=== PATIENT | female | born 1955 | race Caucasian/White ===

== ENCOUNTER 2020-06-04 16:41 | Emergency (ER) | payer MEDICARE, SELFPAY ==
[2020-06-04 17:00] VITALS: RESP 17
[2020-06-04 17:06] VITALS: BP 137/81; PULSE 95; RESP 17; TEMP 36.8; O2SAT 97; BMI 36.6
--- NOTE | 2020-06-04 17:17 | ECG_ITS ---
Test Reason : WEAKNESS Blood Pressure : / mmHG Vent. Rate : 071 BPM Atrial Rate : 071 BPM P-R Int : 140 ms QRS Dur : 088 ms QT Int : 382 ms P-R-T Axes : 050 004 055 degrees QTc Int : 415 ms Normal sinus rhythm Inferior infarct (cited on or before 18-AUG-2017) Otherwise normal ECG When compared with ECG of 18-AUG-2017 15:04, No significant change was found Referred By: Autumn Storey Electronically Signed By:MOI EVERETT MD
--- NOTE | 2020-06-04 17:17 | XR_ITS ---
EXAMINATION: PORTABLE CHEST 1 VIEW CLINICAL INFORMATION: sob . COMPARISON: 10/24/2017. TECHNIQUE: Portable frontal view of the chest was obtained. FINDINGS: Lungs remain hypoexpanded. There is a significant convex right thoracic curve. I do not appreciate any acute superimposed focal infiltrate, effusion, edema, or pneumothorax in this setting. Cardiac and mediastinal silhouettes likely within normal limits again for the degree of significant scoliosis. No acute bony abnormality superimposed on these chronic changes IMPRESSION: Significant convex right scoliotic curve. No acute process seen when compared to the prior study.
--- NOTE | 2020-06-04 17:44 | ED.SOB ---
HPI - SOB/Dyspnea General Chief Complaint: Dyspnea Stated Complaint: COUGH Time Seen by Provider: 06/04/20 17:11 Source: patient Mode of arrival: ambulatory History of Present Illness HPI Narrative: 64-year-old female with a past medical history of asthma presenting to ED complaining of worsening SOB, dry cough, and generalized fatigue /weakness x2 weeks. admits to episode of CP last night, denies at present. denies fever, chills, abdominal pain, nausea / vomiting, LE edema, history of clots, exposure to COVID-19 MD elicited complaint: shortness of breath and cough Related Data Allergies Allergy/AdvReac Type Severity Reaction Status Date / Time codeine [Codeine] Allergy Unknown LETHARGIC Unverified 05/05/20 17:25 omeprazole Allergy Unknown throat Verified 01/05/19 00:00 swelling penicillin G [Penicillin G] Allergy Unknown RASH Unverified 05/05/20 17:25 penicillin V Allergy Unknown Verified 01/05/19 00:00 Sulfa (Sulfonamide Allergy Unknown ITCH Unverified 05/05/20 17:25 Antibiotics) Review of Systems Review of Systems: Constitutional: No Weight loss, No Fever, No Chills, No Night Sweats,+ Fatigue, + Malaise ENT/Mouth: No Nasal Congestion, +Sinus Pain, No Hoarseness, + sore throat, + Rhinorrhea Cardiovascular: + Chest Pain, + SOB, No Dyspnea on Exertion, No Orthopnea, No Edema Respiratory: +Cough, No Sputum, No Wheezing, + Dyspnea Gastrointestinal: No Nausea, No Vomiting, No Diarrhea, No Constipation, No Abdominal pain Skin: No Skin Lesions, No rash Yes all other systems are reviewed and are negative [facility] Past Medical History Attestation statement: The following information was validated with the patient. Source: old records reviewed and nursing notes reviewed Medical History (Updated 06/04/20 @ 19:36 by ANGELES Lucero) Asthma Social History Social History Alcohol intake: never Smoking Status: Never smoker Smoked in Last 30 Days: No Use of substances other than those prescribed or required for medical reasons: No Advance Directives: No Advance Directives Information Provided: Yes Physical Exam Vital Signs: Vital Signs: Vital Signs Temp Pulse Resp BP Pulse Ox 06/04/20 17:06 98.3 F 95 17 137/81 97 06/04/20 17:00 17 Body Mass Index 36.6 Const: General: cooperative and healthy appearing Orientation/consciousness: patient oriented x3 Limitations: no limitations HENMT: Head: Yes normal to inspection Ears: hearing grossly normal bilaterally General nose exam: Normal external nose present Face and sinus: Yes normal facial exam Mouth: Normal oral and palatal mucosa present Throat: Yes posterior oropharynx normal, Yes tonsils normal and Yes uvula midline Eyes: General: appearance normal, both eyes and all related structures EOM: EOMs intact bilaterally Neck: Neck: Yes normal visual inspection and Yes no lymphadenopathy Resp: Effort & Inspection: normal respiratory effort Auscultation: clear to auscultation bilaterally, no crackles, no rales, no rhonchi and no wheezes Cardio: Rate: regular rate Heart sounds: S1 normal heart sound present and S2 normal heart sound present GI: Inspection: Yes normal to inspection Palpation (GI): Soft to palpation, nontender, no guarding and not rigid Skin: Rashes: no rashes Wounds: no wounds Neuro: General: patient oriented x3 Gait exam (Neuro): Normal gait present Extrem: General: Yes normal to inspection and No edema Course Course Course Narrative: - labs at patient's baseline. Troponin negative, CXR unremarkable lab and imaging results discussed with patient including worrisome signs and symptoms and strict return precautions. Patient verbalized understanding feel safe for discharge follow-up with PCP MDM - SOB/Dyspnea MDM Narrative Medical decision making narrative: 64-year-old female with a past medical history of asthma presenting to ED complaining of worsening SOB, dry cough, and generalized fatigue /weakness x2 weeks. On exam VSS, NAD/ well-appearing, lungs CTA, no LE edema. Concern for viral syndrome/ COVID-19/bronchitis vs asthma exacerbation. Rule out pneumonia. Low concern for ACS / PE Plan: EKG, labs, CXR, COVID-19, reassess Differential Diagnosis Differential diagnosis: Likely acute exacerbation of chronic obstructive airways disease, congestive heart failure, pneumonia, asthma with exacerbation, pulmonary embolism, pleural effusion and anemia Lab Data Result diagrams: 06/04/20 17:59 06/04/20 17:59 Labs: Lab Results 06/04/20 06/04/20 06/04/20 Range/Units 17:58 17:58 17:59 WBC (4.8-10.8) X10*3/uL RBC (4.20-5.50) X10*6/uL Hgb (12.0-16.0) g/dl Hct (37-47) % MCV (80-98) fL MCH (27.0-33.0) pg MCHC (31.0-35.0) g/dl RDW (11.0-16.0) % Plt Count (160-400) X10*3/uL MPV (9.4-12.3) fL Immature Gran % (Auto) (0.0-0.4) % Neut % (Auto) (45-73) % Lymph % (Auto) (20-40) % [place] % (Auto) (2-11) % Eos % (Auto) (0-4) % Baso % (Auto) (0-2) % Lymph # (Auto) (1.2-4.9) X10*3/uL [place] # (Auto) (0.1-1.2) X10*3/uL Eos # (Auto) (0.0-0.4) X10*3/uL Baso # (Auto) (0.0-0.2) X10*3/uL Abs Immat Gran (auto) (0.00-0.03) X10*3/uL Absolute Neuts (auto) (2.0-8.3) X10*3/uL Absolute Nucleated RBC (0.0-0.012) X10*3/uL Nucleated RBC % (auto) (0.0-0.2) /100WBC Hold Blue Top SEE NOTE Sodium (135-145) mmol/L Potassium (3.3-5.1) mmol/l Chloride (96-108) mmol/L Carbon Dioxide (22-29) mmol/L Anion Gap (12-20) BUN (9-16) mg/dL Creatinine (0.5-1.4) mg/dL Estim Creat Clear Calc Estimated GFR Random Glucose (60-115) mg/dL Calcium (8.4-10.2) mg/dL Ferritin 21 (10-250) ng/mL Total Bilirubin (0.0-1.0) mg/dL Direct Bilirubin (0.0-0.5) mg/dL AST (5-31) U/L ALT (0-31) U/L Alkaline Phosphatase (39-117) U/L Lactate Dehydrogenase 187 (122-220) U/L Troponin I High Sens (<3.5-17.0) ng/L B-Natriuretic Peptide (<100) pg/mL Total Protein (6.5-8.0) g/dL Albumin (3.5-5.0) g/dL Procalcitonin 0.02 ng/mL 06/04/20 06/04/20 06/04/20 Range/Units 17:59 17:59 17:59 WBC 10.7 (4.8-10.8) X10*3/uL RBC 4.51 (4.20-5.50) X10*6/uL Hgb 11.6 L (12.0-16.0) g/dl Hct 37.5 (37-47) % MCV 83.1 (80-98) fL MCH 25.7 L (27.0-33.0) pg MCHC 30.9 L (31.0-35.0) g/dl RDW 16.0 (11.0-16.0) % Plt Count 424 H (160-400) X10*3/uL MPV 9.8 (9.4-12.3) fL Immature Gran % (Auto) 0.5 H (0.0-0.4) % Neut % (Auto) 62.9 (45-73) % Lymph % (Auto) 27.0 (20-40) % [place] % (Auto) 8.1 (2-11) % Eos % (Auto) 1.0 (0-4) % Baso % (Auto) 0.5 (0-2) % Lymph # (Auto) 2.9 (1.2-4.9) X10*3/uL [place] # (Auto) 0.9 (0.1-1.2) X10*3/uL Eos # (Auto) 0.1 (0.0-0.4) X10*3/uL Baso # (Auto) 0.1 (0.0-0.2) X10*3/uL Abs Immat Gran (auto) 0.05 H (0.00-0.03) X10*3/uL Absolute Neuts (auto) 6.8 (2.0-8.3) X10*3/uL Absolute Nucleated RBC 0.000 (0.0-0.012) X10*3/uL Nucleated RBC % (auto) 0.0 (0.0-0.2) /100WBC Hold Blue Top Sodium 136 (135-145) mmol/L Potassium 4.5 (3.3-5.1) mmol/l Chloride 104 (96-108) mmol/L Carbon Dioxide 24 (22-29) mmol/L Anion Gap 13 (12-20) BUN 13 (9-16) mg/dL Creatinine 0.82 (0.5-1.4) mg/dL Estim Creat Clear Calc 73.5 Estimated GFR > 60 Random Glucose 103 (60-115) mg/dL Calcium 9.2 (8.4-10.2) mg/dL Ferritin (10-250) ng/mL Total Bilirubin 0.3 (0.0-1.0) mg/dL Direct Bilirubin 0.2 (0.0-0.5) mg/dL AST 22 (5-31) U/L ALT 34 H (0-31) U/L Alkaline Phosphatase 132 H (39-117) U/L Lactate Dehydrogenase (122-220) U/L Troponin I High Sens < 3.5 (<3.5-17.0) ng/L B-Natriuretic Peptide 14 (<100) pg/mL Total Protein 7.3 (6.5-8.0) g/dL Albumin 4.4 (3.5-5.0) g/dL Procalcitonin ng/mL ECG Data Attestation: I personally reviewed and interpreted this ECG as follows: ECG interpretation date: 06/04/20 Interpretation: normal sinus rhythm. Rate 71. Q-waves noted in II, unchanged Discharge Plan Discharge Clinical Impression: Acute viral syndrome Patient Disposition: Home, Self-Care Instructions: Viral Syndrome (ED) Additional Instructions: your blood work and chest x-ray were unremarkable today in the ED You have a viral illness You may have COVID-19, you were tested today in the ED, the results should be back in 1-3 days You need to self isolate into you know the results Based on your symptoms and history we have sent a COVID-19. Although your RESULT IS PENDING at this time. RESULTS should return within 72 hours. At this time you will be contacted with either NEGATIVE OR POSITIVE results. -Please wait until we contact you for your results. At this time you will be okay for discharge. Please plan for self quarantine for up to 14 days. Do not expose yourself to others. You may not go to work. If testing does come back negative you may return to activities as long as you are no longer having any symptoms for at least 3 days. Please continue to follow cold instructions and wash your hands frequently. You may take Tylenol as directed on the bottle for pain or fever. Patient seen in the emergency department on 02/12/2020 and should be excused from work until negative test results AND until 72 hours without any symptoms AND at least 10 days have passed since symptoms first appeared or since last exposure to COVID-19 positive patient CDC Guidelines for home isolation: - Stay away from others - WEAR A MASK if you are sick AND STAY HOME - Cover your mouth and nose with a tissue when you cough or sneeze. Dispose of tissues in a lined trash can and wash your hands immediately with soap and water for at least 20 seconds. If soap and water are not available, clean hands with alcohol-based hand ethanol maintenance mechanic that contains at least 60% alcohol. - Clean your hands often with soap and water for at least 20 seconds - Avoid touching your eyes, nose and mouth with unwashed hands - Do not share dishes, drinking glasses, cups, eating utensils, towels, or bedding with other people in your home. After using these items, wash them thoroughly with soap and water or put in the video editing intern. - Clean high-touch surfaces in your isolation area ( sick room and bathroom) every day; let a caregiver clean and disinfect high-touch surfaces in other areas of the home. Clean the area or item with soap and water or another detergent if it is dirty. Then, use a household disinfectant. - Limit contact with pets and animals: If you must care for a pet, wash your hands before and after interacting with them) Referrals: Colleen Fernández NP [Primary Care Provider] - 2 days
[2020-06-04 18:06] LABS: MANUAL DIFF FLAG NO
[2020-06-04 18:30] LABS: Basophils Absolute Auto 0.1 X10*3/uL (0.0-0.2); Basophils Percent Auto 0.5 % (0-2); Eosinophils Absolute Auto 0.1 X10*3/uL (0.0-0.4); Hematocrit 37.5 % (37-47); Hemoglobin 11.6 g/dl (12.0-16.0); Imm Gran Abs Auto 0.05 X10*3/uL (0.00-0.03); Imm Gran Pct Auto 0.5 % (0.0-0.4); Lymphocytes Absolute Auto 2.9 X10*3/uL (1.2-4.9); Mean Corpuscular HGB Conc 30.9 g/dl (31.0-35.0); Mean Corpuscular Hemoglobin 25.7 pg (27.0-33.0); Mean Corpuscular Volume 83.1 fL (80-98); Mean Platelet Volume 9.8 fL (9.4-12.3); Monocytes Absolute Auto 0.9 X10*3/uL (0.1-1.2); Monocytes Percent Auto 8.1 % (2-11); Neutrophils Absolute Auto 6.8 X10*3/uL (2.0-8.3); Neutrophils Percent Auto 62.9 % (45-73); Platelet Count 424 X10*3/uL (160-400); Red Blood Count 4.51 X10*6/uL (4.20-5.50); White Blood Count 10.7 X10*3/uL (4.8-10.8)
[2020-06-04 18:32] LABS: Lactate Dehydrogenase 187 U/L (122-220)
[2020-06-04 18:39] LABS: B Type Natriuretic Peptide 14 pg/mL (<100); Troponin-I High Sensitivity < 3.5 ng/L (<3.5-17.0)
[2020-06-04 18:45] LABS: Alanine Aminotransferase 34 U/L (0-31); Albumin Level 4.4 g/dL (3.5-5.0); Alkaline Phosphatase 132 U/L (39-117); Anion Gap 13 (12-20); Aspartate Amino Transferase 22 U/L (5-31); Bilirubin Direct 0.2 mg/dL (0.0-0.5); Bilirubin Total 0.3 mg/dL (0.0-1.0); Blood Urea Nitrogen 13 mg/dL (9-16); Carbon Dioxide 24 mmol/L (22-29); Chloride 104 mmol/L (96-108); Creatinine Clr Calc Pharmacy 73.5; Estimated Glomerular Filt Rate > 60; Glucose Random 103 mg/dL (60-115); Potassium 4.5 mmol/l (3.3-5.1); Sodium 136 mmol/L (135-145); Total Protein 7.3 g/dL (6.5-8.0)
[2020-06-04 18:53] LABS: Procalcitonin 0.02 ng/mL
[2020-06-04 18:56] LABS: Ferritin 21 ng/mL (10-250)
[2020-06-04 19:11] LABS: Calcium 9.2 mg/dL (8.4-10.2)
[2020-06-04 19:43] VITALS: BP 140/85; PULSE 85; RESP 17; TEMP 37.1; O2SAT 98
== END 2020-06-04 19:49 | disposition home or self-care (01) ==
PROVIDERS: Physician Assistant; Emergency Provider Emergency Medicine; PCP Nurse Practitioner Family
DX: B34.9 Viral infection, unspecified (principal); Z20.828 Contact with and (suspected) exposure to other viral communicable diseases; J45.909 Unspecified asthma, uncomplicated
CPT/HCPCS: 36415; 71045; 80048; 80076; 82728; 83615; 83880; 84145; 84484; 85025; 87635; 93005; 99284

== ENCOUNTER 2021-06-11 14:47 | Emergency (ER) | payer MEDICARE, SELFPAY ==
--- NOTE | ~2021-06-11 | CT_ITS ---
EXAMINATION: CT BRAIN AND CT CERVICAL SPINE WITHOUT CONTRAST CLINICAL INFORMATION: Dizziness COMPARISON: None TECHNIQUE: 5 mm thin axial and reformatted 2 mm thin sagittal and coronal images of brain were obtained. Subsequently axial 3 mm thin and reformatted 2 mm thin sagittal coronal images of cervical spine were obtained. DLP [id number]. FINDINGS: There is no acute intra-axial, extra-axial bleed, masses, collection or midline shift. 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 No acute infarction evolution seen. The lateral ventricles are symmetrical in size and configuration. The zhang to white matter difference is maintained with mild periventricular hypodensity in both several hemispheres. Bone windows reveal no calvarial abnormality. Bilateral paranasal sinuses and mastoid air cells are well-aerated. Cervical spine: On sagittal reconstructed images there is normal cervical lordosis. The vertebral heights, alignment and disc heights are normal. The craniovertebral junction and the C1-C2 alignment is normal. No visible acute fracture, dislocation or lytic process seen. The paravertebral soft tissues are normal. The lung apices are clear. Central trachea is widely patent. CT/CT head/brain wo con IMPRESSION: No acute intracranial process seen. There is a no acute fracture or dislocation cervical spine. Mild scoliosis of cervical-dorsal spine is noted.
--- NOTE | ~2021-06-11 | CT_ITS ---
EXAMINATION: CT BRAIN AND CT CERVICAL SPINE WITHOUT CONTRAST CLINICAL INFORMATION: Dizziness COMPARISON: None TECHNIQUE: 5 mm thin axial and reformatted 2 mm thin sagittal and coronal images of brain were obtained. Subsequently axial 3 mm thin and reformatted 2 mm thin sagittal coronal images of cervical spine were obtained. DLP [id number]. FINDINGS: There is no acute intra-axial, extra-axial bleed, masses, collection or midline shift. 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 No acute infarction evolution seen. The lateral ventricles are symmetrical in size and configuration. The zhang to white matter difference is maintained with mild periventricular hypodensity in both several hemispheres. Bone windows reveal no calvarial abnormality. Bilateral paranasal sinuses and mastoid air cells are well-aerated. Cervical spine: On sagittal reconstructed images there is normal cervical lordosis. The vertebral heights, alignment and disc heights are normal. The craniovertebral junction and the C1-C2 alignment is normal. No visible acute fracture, dislocation or lytic process seen. The paravertebral soft tissues are normal. The lung apices are clear. Central trachea is widely patent. CT/CT cervical spine wo con IMPRESSION: No acute intracranial process seen. There is a no acute fracture or dislocation cervical spine. Mild scoliosis of cervical-dorsal spine is noted.
[2021-06-11 14:57] VITALS: BP 124/86; PULSE 84; O2SAT 98
[2021-06-11 15:02] VITALS: BP 122/74; PULSE 84; RESP 16; TEMP 36.8; O2SAT 98; BMI 36.6
--- NOTE | 2021-06-11 15:09 | ECG_ITS ---
Test Reason : DIZZINESS Blood Pressure : / mmHG Vent. Rate : 084 BPM Atrial Rate : 084 BPM P-R Int : 144 ms QRS Dur : 084 ms QT Int : 394 ms P-R-T Axes : 047 011 048 degrees QTc Int : 465 ms Normal sinus rhythm Normal ECG No significant changes seen Referred By: Raúl Harmon Electronically Signed By:MOI EVERETT MD
--- NOTE | 2021-06-11 15:12 | ED.GENADULT ---
HPI - General Adult General Chief complaint: Dizziness Stated complaint: FALL,? TOOK TO MANY SLEEPING MEDS PER DTR Time Seen by Provider: 06/11/21 15:04 Source: patient Mode of arrival: EMS Limitations: no limitations History of Present Illness HPI narrative: 65 years old female presented by ambulance after a fall at home, doctor called because she appeared lethargic and she felt that perhaps she took too much benzodiazepine. The patient has a prescription for Xanax she states that she took 1 last night along with a melanotine because she could not sleep. She denies any drug abuse any alcohol abuse. She has no suicidal. She has some dizziness but she suffered a chronic dizziness. She denies any fever, chills, vomiting abdominal pain any systemic symptoms Onset (ago): hour(s) (3) Location: head Radiation: non-radiation Severity: moderate Pain Consistency: constant Relieving factors: none Exacerbating factors: none Associated symptoms: denies other symptoms Related Data Allergies Allergy/AdvReac Type Severity Reaction Status Date / Time codeine [Codeine] Allergy Unknown LETHARGIC Verified 06/11/21 14:57 omeprazole Allergy Unknown throat Verified 01/05/19 00:00 swelling penicillin G [Penicillin G] Allergy Unknown RASH Verified 06/11/21 14:57 penicillin V Allergy Unknown Unknown Verified 06/11/21 14:57 Sulfa (Sulfonamide Allergy Unknown ITCH Verified 06/11/21 14:57 Antibiotics) Review of Systems Constitutional: Constitutional: Reports no additional constitutional complaints ENT: Reports system reviewed and no additional complaints, except as documented Cardiovascular: Cardiovascular: Denies lightheadedness and Denies Loss of Consciousness Respiratory: Respiratory: Denies cough Gastrointestinal: Gastrointestinal: Denies diarrhea, Denies nausea and Denies vomiting Musculoskeletal: Musculoskeletal: Reports no additional musculoskeletal complaints [facility] Past Medical History Medical History Asthma Prolapse 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, acquired Surgical History History of appendectomy History of hysterectomy History of Quinn-en-Y gastric bypass History of umbilical hernia repair Social History Social History Alcohol intake: never Advance Directives: No Advance Directives Information Provided: Yes Physical Exam Vital Signs: Vital Signs: Last Vital Signs Temp 98.2 F 06/11/21 15:02 Pulse 84 06/11/21 15:02 Resp 16 06/11/21 15:02 BP 122/74 06/11/21 15:02 Pulse Ox 98 06/11/21 15:02 Body Mass Index 36.6 Const: General: cooperative, comfortable, no acute distress, well developed, alert and awake Nutritional Appearance: average body habitus Orientation/consciousness: patient oriented x3 HENMT: Head: Yes normal to inspection Face and sinus: Yes normal facial exam Mouth: Normal oral and palatal mucosa present Throat: Yes posterior oropharynx normal Eyes: General: appearance normal, both eyes and all related structures Pupils: Equal, round and reactive pupils present EOM: EOMs intact bilaterally Neck: Neck: Yes normal visual inspection and Yes full ROM Chest: Chest palpation & inspection: normal inspection of the chest Resp: Effort & Inspection: normal respiratory effort Auscultation: clear to auscultation bilaterally Cardio: Jugular venous distension: no JVD Rate: regular rate Rhythm: regular rhythm GI: Inspection: Yes normal to inspection Palpation (GI): Soft to palpation, nontender and no guarding Skin: General skin exam: no rashes or lesions noted, elasticity normal and turgor normal Rashes: no rashes Wounds: no wounds Neuro: General: patient oriented x3 Cranial nerves: Yes Equal, round and reactive pupils present Course Reevaluation(s) Reevaluation #1: case was signed off to Dr Ross,lab ct pending Medical Decision Making Lab Data Result diagrams: 06/11/21 15:17 06/11/21 15:17 Labs: Lab Results 06/11/21 06/11/21 06/11/21 Range/Units 15:17 15:17 15:17 WBC 9.6 (4.8-10.8) X10*3/uL RBC 4.24 (4.20-5.50) X10*6/uL Hgb 11.1 L (12.0-16.0) g/dl Hct 35.2 L (37-47) % MCV 83.0 (80-98) fL MCH 26.2 L (27.0-33.0) pg MCHC 31.5 (31.0-35.0) g/dl RDW 15.6 (11.0-16.0) % Plt Count 412 H (160-400) X10*3/uL MPV 9.1 L (9.4-12.3) fL Immature Gran % (Auto) 0.3 (0.0-0.4) % Neut % (Auto) 57.9 (45-73) % Lymph % (Auto) 31.3 (20-40) % [place] % (Auto) 8.4 (2-11) % Eos % (Auto) 1.6 (0-4) % Baso % (Auto) 0.5 (0-2) % Lymph # (Auto) 3.0 (1.2-4.9) X10*3/uL [place] # (Auto) 0.8 (0.1-1.2) X10*3/uL Eos # (Auto) 0.2 (0.0-0.4) X10*3/uL Baso # (Auto) 0.1 (0.0-0.2) X10*3/uL Abs Immat Gran (auto) 0.03 (0.00-0.03) X10*3/uL Absolute Neuts (auto) 5.6 (2.0-8.3) X10*3/uL Absolute Nucleated RBC 0.000 (0.0-0.012) X10*3/uL Nucleated RBC % (auto) 0.0 (0.0-0.2) /100WBC Sodium 137 (135-145) mmol/L Potassium 3.9 (3.3-5.1) mmol/L Chloride 107 (96-108) mmol/L Carbon Dioxide 20 L (22-29) mmol/L Anion Gap 14 (12-20) BUN 12 (9-16) mg/dL Creatinine 0.76 (0.5-1.4) mg/dL Estim Creat Clear Calc 78.3 Estimated GFR > 60 Random Glucose 111 (60-115) mg/dL Calcium 8.8 (8.4-10.2) mg/dL Total Bilirubin 0.2 (0.0-1.0) mg/dL AST 12 D (5-31) U/L ALT 18 (0-31) U/L Alkaline Phosphatase 111 (39-117) U/L Troponin I High Sens < 3.5 (<3.5-17.0) ng/L Total Protein 6.4 L (6.5-8.0) g/dL Albumin 3.8 (3.5-5.0) g/dL Discharge Plan Discharge Clinical Impression: Fall, Dizziness
[2021-06-11 15:21] LABS: MANUAL DIFF FLAG NO
[2021-06-11 15:23] LABS: Basophils Absolute Auto 0.1 X10*3/uL (0.0-0.2); Basophils Percent Auto 0.5 % (0-2); Eosinophils Absolute Auto 0.2 X10*3/uL (0.0-0.4); Eosinophils Percent Auto 1.6 % (0-4); Hematocrit 35.2 % (37-47); Hemoglobin 11.1 g/dl (12.0-16.0); Imm Gran Abs Auto 0.03 X10*3/uL (0.00-0.03); Imm Gran Pct Auto 0.3 % (0.0-0.4); Lymphocytes Percent Auto 31.3 % (20-40); Mean Corpuscular HGB Conc 31.5 g/dl (31.0-35.0); Mean Corpuscular Hemoglobin 26.2 pg (27.0-33.0); Mean Platelet Volume 9.1 fL (9.4-12.3); Monocytes Absolute Auto 0.8 X10*3/uL (0.1-1.2); Monocytes Percent Auto 8.4 % (2-11); Neutrophils Absolute Auto 5.6 X10*3/uL (2.0-8.3); Neutrophils Percent Auto 57.9 % (45-73); Platelet Count 412 X10*3/uL (160-400); Red Blood Count 4.24 X10*6/uL (4.20-5.50); Red Cell Distribution Width 15.6 % (11.0-16.0); White Blood Count 9.6 X10*3/uL (4.8-10.8)
[2021-06-11 15:41] LABS: Troponin-I High Sensitivity < 3.5 ng/L (<3.5-17.0)
[2021-06-11 15:46] LABS: Alanine Aminotransferase 18 U/L (0-31); Albumin Level 3.8 g/dL (3.5-5.0); Alkaline Phosphatase 111 U/L (39-117); Anion Gap 14 (12-20); Aspartate Amino Transferase 12 U/L (5-31); Bilirubin Total 0.2 mg/dL (0.0-1.0); Blood Urea Nitrogen 12 mg/dL (9-16); Calcium 8.8 mg/dL (8.4-10.2); Carbon Dioxide 20 mmol/L (22-29); Chloride 107 mmol/L (96-108); Creatinine Clr Calc Pharmacy 78.3; Estimated Glomerular Filt Rate > 60; Glucose Random 111 mg/dL (60-115); Potassium 3.9 mmol/L (3.3-5.1); Sodium 137 mmol/L (135-145); Total Protein 6.4 g/dL (6.5-8.0)
[2021-06-11 15:53] VITALS: BP 140/85; PULSE 80; RESP 18; O2SAT 95
[2021-06-11 16:10] LABS: Ethanol < 10 mg/dL
[2021-06-11 18:31] LABS: Appearance Urine HAZY; Color Urine YELLOW; Glucose Urine UA NEG (NEG); Leukocyte Esterase Urine NEG (NEG); Nitrite Urine NEG (NEG); Urine Blood NEG (NEG); Urine Ketones NEG (NEG); Urine Protein NEG (NEG-TRACE)
[2021-06-11 18:38] LABS: Mucus Urine TRACE /LPF; Squamous Epithelial Cell Urine 1+ /LPF
[2021-06-11 18:39] LABS: Bacteria Urine TRACE /LPF; RBC Urine 0-2 /HPF (0); WBC Urine 0 /HPF (0-4)
[2021-06-11 18:48] LABS: Amphetamine Screen Urine Not Detected (Not Detect); Barbiturates, Urine Not Detected (Not Detect); Benzodiazepines Screen Urine POSITIVE (Not Detect); Cannabinoid Screen Urine Not Detected (Not Detect); Cocaine Screen Urine Not Detected (Not Detect); Fentanyl, urine Not Detected (Not Detect); Opiate Screen Urine Not Detected (Not Detect); Phencyclidine Screen Urine Not Detected (Not Detect)
[2021-06-11 22:54] VITALS: BP 119/69; PULSE 84; RESP 18; O2SAT 97
--- NOTE | 2021-06-11 22:56 | PC.NURSE ---
Pt awoke from sleep requesting to use bathroom. Pt ambulatory w/ slow and steady gait to bathroom, assisted by walker. Noted to have self-discontinued PIV. Pt is alert and oriented, speech slow. Returned to bed and repositioned, sandwich and nic berenice given. Pt updated on dispo pending in AM, upset but verbalizes understanding
[2021-06-12 07:34] VITALS: BP 119/69; PULSE 84; O2SAT 97
[2021-06-12 08:32] VITALS: BP 147/78; PULSE 76; RESP 18; TEMP 36.7; O2SAT 98
--- NOTE | 2021-06-12 08:42 | PC.NURSE ---
Patient asking for something to eat, states she has had nothing since yesterday at breakfast time however there are several chicken sandwich wrappers on bedside table . Patient states if breakfast does not come in five minutes she will walk to kitchen herself and get it. RN Malina had already spoken to Patient several times about calling kitchen for a breakfast tray for her. Tea, toast and oatmeal was made for Patient by this tech. Breakfast tray arrived from kitchen given to patient .
--- NOTE | 2021-06-12 08:56 | MHC.CM.ED ---
Addendum entered by Diana Phipps 06/12/21 12:08: Referral broadcasted to 49 agencies. [facility] is willing to accept patient. Original Note: Received case management consult overnight. Patient came to ER due to falls. Work up essentially negative. Physical therapy eval completed. Home therapy is recommended. Attempted to meet with patient in regards to discharge planning. Patient currently sleeping. Spoke with patient's daughter, Tiffanie via telephone at [phone]. Patient was living with Tiffanie and her family until about a year ago, but an apartment was available at [facility]. Patient has been living alone since then. Tiffanie is concerned about patient's safety due to freq falls. Patient agreeable to referral to [facility] for [facility], physical therapy, occupational therapy and a social media project manager. Tiffanie will be here at 930am to transport patient home. Autumn REYNOSO aware. Continue to monitor for d/c needs.
== END 2021-06-12 09:42 | disposition home or self-care (01) ==
PROVIDERS: Emergency Medicine; Emergency Provider Emergency Medicine Emergency Medical Services; PCP Nurse Practitioner Family
DX: R42 Dizziness and giddiness (principal); M54.2 Cervicalgia; G44.309 Post-traumatic headache, unspecified, not intractable; Z98.84 Bariatric surgery status; Z79.899 Other long term (current) drug therapy
CPT/HCPCS: 36415; 70450; 72125; 80053; 80307; 81001; 82077; 84484; 85025; 93005; 97161; 99284

== ENCOUNTER 2021-08-28 18:38 | Emergency (ER) | payer MEDICARE, SELFPAY ==
[2021-08-28 18:46] VITALS: BP 148/70; PULSE 115
[2021-08-28 19:38] VITALS: BP 183/84; PULSE 112; RESP 20; TEMP 36; O2SAT 98; BMI 36.6
== END 2021-08-28 20:43 | disposition left against medical advice (07) ==
LOC: HO.ED 20:42
PROVIDERS: Emergency Provider Emergency Medicine
DX: R06.02 Shortness of breath (principal); J45.909 Unspecified asthma, uncomplicated; I10 Essential (primary) hypertension; E78.5 Hyperlipidemia, unspecified; Z79.899 Other long term (current) drug therapy
CPT/HCPCS: 99281; 99282

== ENCOUNTER → 2022-02-06 13:23 | Outpatient (BNVA) | payer MEDICARE, SELFPAY | PROVIDERS: PCP Nurse Practitioner Family; Visit Provider Hospitalist | DX: J45.41 Moderate persistent asthma with (acute) exacerbation (principal); J18.9 Pneumonia, unspecified organism; J44.9 Chronic obstructive pulmonary disease, unspecified | CPT/HCPCS: 94640; 96372; 99202; J2930 ==

== ENCOUNTER 2024-11-16 12:26 | Outpatient (REF) | payer OTHER, SELFPAY ==
[2024-11-16 13:06] LABS: MANUAL DIFF FLAG NO
[2024-11-16 14:29] LABS: Basophils Absolute Auto 0.1 X10*3/uL (0.0-0.2); Basophils Percent Auto 0.8 % (0-2); Eosinophils Absolute Auto 0.1 X10*3/uL (0.0-0.4); Eosinophils Percent Auto 1.3 % (0-4); Hematocrit 39.8 % (37.0-47.0); Hemoglobin 12.5 g/dl (12.0-16.0); Imm Gran Abs Auto 0.03 X10*3/uL (0.00-0.03); Imm Gran Pct Auto 0.3 % (0.0-0.4); Lymphocytes Absolute Auto 3.2 X10*3/uL (1.2-4.9); Mean Corpuscular HGB Conc 31.4 g/dl (31.0-35.0); Mean Corpuscular Hemoglobin 26.4 pg (27.0-33.0); Mean Corpuscular Volume 84.1 fL (80.0-98.0); Mean Platelet Volume 10.1 fL (9.4-12.3); Monocytes Absolute Auto 0.8 X10*3/uL (0.1-1.2); Monocytes Percent Auto 7.2 % (2-11); Neutrophils Absolute Auto 6.3 x10*3/uL (2.0-8.3); Neutrophils Percent Auto 60.4 % (45-73); Platelet Count 447 X10*3/uL (160-400); Red Blood Count 4.73 X10*6/uL (4.20-5.50); Red Cell Distribution Width 14.4 % (11.0-16.0); White Blood Count 10.5 X10*3/uL (4.8-10.8)
[2024-11-16 14:53] LABS: Estimated Average Glucose 140 mg/dL; Hemoglobin A1c % 6.5 % (<6.0)
[2024-11-16 15:02] LABS: Alanine Aminotransferase 21 U/L (0-31); Albumin Level 4.3 g/dL (3.5-5.0); Alkaline Phosphatase 125 U/L (39-117); Anion Gap 14 (12-20); Aspartate Amino Transferase 19 U/L (5-31); Bilirubin Total 0.5 mg/dL (0.0-1.0); Blood Urea Nitrogen 23 mg/dL (9-16); Calcium 9.4 mg/dL (8.4-10.2); Carbon Dioxide 24 mmol/L (22-29); Chloride 105 mmol/L (96-108); Cholesterol 265 mg/dL (<200); Estimated Glomerular Filt Rate > 60; Glucose Random 106 mg/dL (60-115); HDL Cholesterol 39 mg/dL (>40); LDL Cholesterol Calculated 176 mg/dL (<100); Potassium 4.8 mmol/L (3.3-5.1); Sodium 138 mmol/L (135-145); Total Protein 7.6 g/dL (6.5-8.0); Triglycerides 253 mg/dL (<150)
[2024-11-16 15:17] LABS: Ferritin 27 ng/mL (10-250)
[2024-11-16 15:25] LABS: Folate 8.5 ng/mL (> or = 4.0); Vitamin B12 206 pg/mL (200-900)
[2024-11-16 16:06] LABS: Creatinine Urine 189.28 mg/dL; Microalbum/Creatinine Ratio Ur 5.8 ug/mg cr (<30)
== END 2024-11-16 12:27 | disposition home or self-care (01) ==
LOC: HO.LAB 12:26
PROVIDERS: PCP Internal Medicine; Visit Provider Internal Medicine
DX: E11.9 Type 2 diabetes mellitus without complications (principal); E78.00 Pure hypercholesterolemia, unspecified; F32.5 Major depressive disorder, single episode, in full remission; G25.81 Restless legs syndrome; G47.00 Insomnia, unspecified; I10 Essential (primary) hypertension; J45.909 Unspecified asthma, uncomplicated; Z98.84 Bariatric surgery status
CPT/HCPCS: 36415; 80053; 80061; 82043; 82570; 82607; 82728; 82746; 83036; 85025